=== PATIENT | female | born 1985 | race Caucasian/White ===

== ENCOUNTER → 2024-08-04 14:02 | Outpatient (BNVA) | payer OTHER, SELFPAY | PROVIDERS: PCP Physician Assistant; Visit Provider Physician Assistant ==

== ENCOUNTER → 2024-10-05 14:48 | Outpatient (BNVA) | payer OTHER, SELFPAY | PROVIDERS: PCP Physician Assistant; Visit Provider Student in an Organized Health Care Education/Training Program ==

== ENCOUNTER 2024-10-06 07:38 | Outpatient (REF) | payer OTHER, SELFPAY ==
[2024-10-06 11:47] LABS: Alanine Aminotransferase 22 U/L (0-31); Albumin Level 4.2 g/dL (3.5-5.0); Alkaline Phosphatase 56 U/L (39-117); Aspartate Amino Transferase 22 U/L (5-31); Bilirubin Direct 0.3 mg/dL (0.0-0.5); Cholesterol 175 mg/dL (<200); HDL Cholesterol 63 mg/dL (>40); LDL Cholesterol Calculated 94 mg/dL (<100); Total Protein 6.6 g/dL (6.5-8.0); Triglycerides 90 mg/dL (<150)
[2024-10-06 12:06] LABS: Thyroid Stimulating Hormone 2.02 uIU/mL (0.32-4.0)
[2024-10-12 15:24] LABS: Thyroid Stimulating Immunoglob 339 % baseline (<140)
== END 2024-10-06 07:39 | disposition home or self-care (01) ==
LOC: HO.WFDLDS 07:38
PROVIDERS: Referring Provider Student in an Organized Health Care Education/Training Program; Visit Provider Physician Assistant
DX: F41.1 Generalized anxiety disorder (principal); F41.0 Panic disorder [episodic paroxysmal anxiety]; E05.90 Thyrotoxicosis, unspecified without thyrotoxic crisis or storm
CPT/HCPCS: 36415; 80061; 80076; 84439; 84443; 84445

== ENCOUNTER 2025-02-02 15:33 | Outpatient (AMB) | payer OTHER, SELFPAY ==
--- NOTE | 2025-02-02 15:42 | A.OFFPC_ITS ---
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 Required: No Allergies cefaclor [From Ceclor] Allergy (Unknown, Verified 02/02/25 15:43) Rash Penicillins Allergy (Unknown, Verified 02/02/25 15:43) Rash Medication List - Last Reconciled 02/02/25 by Trini Vann PA-C cholecalciferol (vitamin D3) 50 mcg PO DAILY methimazole 5 mg PO 5XW minoxidil 1.25 mg PO DAILY omega-3 fatty acids-fish oil 300-500 mg (Fish Oil) caps PO propranolol 20 mg PO BID 90 days Tobacco use date assessed: 02/02/25 Dental Screening Dental Screen Date: 02/02/25 Did you have a dental visit in the last 12 months?: Yes Did you have a dental problem in the last 6 months where you did not have access to dental care?: No Was dental information given to patient?: Patient has dentist HPI Physical HPI Details Patient is a 39-year-old female with a significant past medical history of Graves disease, generalized anxiety who presents today for a physical exam Endo: At our last visit she did have her TSH rechecked which was WNL. Her antibodies are still positive. She is now following with [facility] endocrinology and states that she likes this approach. She had her propranolol reduced. Psych: She is feeling that her anxiety is a lot better since stopping the Wellbutrin. She is on propranolol and doing well. 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 [facility] Medical History (Updated 12/07/24 @ 11:05 by Chelly Levin) Graves disease Generalized anxiety disorder with panic attacks Hyperthyroidism Surgical History History of eyelid surgery Family History Father Diabetes Maternal Aunt No problems noted. 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 1. Little interest or pleasure in doing things: not at all 2. Feeling down, depressed, or hopeless: not at all 3. Trouble falling or staying asleep, or sleeping too much: not at all 4. Feeling tired or having little energy: not at all 5. Poor appetite or overeating: not at all 6. Feeling bad about yourself - or that you are a failure or have let yourself or your family down: not at all 7. Trouble concentrating on things, such as reading the newspaper or watching television: not at all 8. Moving or speaking so slowly that other people could have noticed. Or the opposite - being so fidgety or restless that you have been moving around a lot more than usual: not at all 9. Thoughts that you would be better off or of hurting yourself in some way: not at all Total score: 0 Depression Screening Interpretation: Negative Depression Screening Done: Yes 42374 - PHQ-9 Billing: Yes Source: Developed by Drs. Brenton De Leon, Karol Mcgarry, Jm Loya and colleagues, with an educational ibeth from [employer]. Thrive Questionnaire Date Thrive assessed: 02/02/25 I am a: Patient What is your living situation today?: I have a steady place to live Within the past 12 months, did the food you bought not last and you didn't have the money to get more?: Often true Within the past 12 months, did you worry whether your food would run out before you got money to buy more?: Never true Do you have trouble paying for medicines?: No Do you have trouble getting transportation to medical appointments?: No Do you have trouble paying your heating and electricity bill?: No Do you have trouble taking care of your child, family member or friend?: No Do you have trouble with day-to-day activities such as bathing, preparing meals, shopping, managing finances, etc.?: No Are you currently unemployed and looking for a job?: No Are you interested in more education?: No Please select the resources that you would like help with: None Currently or been in a relationship where the following occur: No concerns reported THRIVE Score: 1 AUDIT C Alcohol Use Questionnaire (AUDIT-C) 1. How often do you have a drink containing alcohol?: Never 3. How often do you have six or more drinks on one occasion?: Never Total Score: 0 MAAME-7 AMB Questionnaire MAAME-7 Date MAAME - 7 assessed: 02/02/25 Feeling nervous, anxious, or on edge: 0 = Not at all Not being able to stop or control worryin = Not at all Worrying too much about different things: 0 = Not at all Trouble relaxin = Not at all Being so restless that it is hard to sit still: 0 = Not at all Becoming easily annoyed or irritable: 0 = Not at all Feeling afraid as if something awful might happen: 0 = Not at all Total MAAME-7 score (0-4 normal; 5-9 mild; 10-14 moderate; 15-21 severe): 0 Source: Developed by Drs. Brenton De Leon, Karol Mcgarry, Jm Loya and colleagues, with an educational ibeth from [employer]. MAAME-7 Assessment Billing MAAME-7 Assessment Tool: MAAME-7 Assessment 47493 Physical exam (Primary Care) Vital Signs: Last Vital Signs Pulse 68 02/02/25 15:48 Resp 12 02/02/25 15:48 BP 98/64 02/02/25 15:48 Pulse Ox 98 02/02/25 15:48 Oxygen Delivery Method Room Air 02/02/25 15:48 Tobacco/Smoking Status: Tobacco use Status Tobacco use date assessed 02/02/25 02/02/25 15:49 Patient Tobacco Use Status Never used Tobacco 02/02/25 15:56 e-Cigarette/Vaping Use Never Used 02/02/25 15:56 PHQ-9: PHQ-9 Score PHQ-9: Total score 0 02/02/25 16:07 Depression Screening Interpretation: Negative Thrive Assessment: Date of Thrive Assessment Date Thrive assessed 02/02/25 02/02/25 15:49 Currently or been in a relationship where the following occur: No concerns reported Const Orientation/consciousness: patient oriented x3 HENMT Ears: hearing grossly normal bilaterally and TM's normal bilaterally General nose exam: No nasal polyps present Face and sinus: Yes sinuses nontender Mouth: Normal oral and palatal mucosa present Eyes Pupils: Equal, round and reactive pupils present EOM: EOMs intact bilaterally Neck Neck: Yes full ROM and Yes no lymphadenopathy Thyroid: Thyroid normal Chest Chest palpation & inspection: normal inspection of the chest Resp Auscultation: clear to auscultation bilaterally Cardio Rate: regular rate Rhythm: regular rhythm Heart sounds: S1 normal heart sound present and S2 normal heart sound present Peripheral pulses: Peripheral pulses 2+ throughout GI Other: Soft, nontender Auscultation: normal bowel sounds Rectal Exam - Female: deferred General: Yes no CVA tenderness Back/Spine/Pelvis Other: Nontender Back: no CVA tenderness Skin General skin exam: no rashes or lesions noted Neuro General: patient oriented x3, gait normal, CN's II-XI intact bilaterally and deep tendon reflexes 2+ bilaterally Cranial nerves: Yes Equal, round and reactive pupils present Motor exam (neuro): 5/5 motor strength present throughout Sensory Exam: double simultaneous stimulation for sensation normal Coordination: [id number]-va-[id number] test normal and Romberg test negative Extrem General: Yes normal to inspection and Yes full ROM Psych Affect: normal affect Attitude: cooperative Thought process: Normal thought process present Thought content: Normal thought content present Insight: Good insight present (Psych) Judgement: Good judgement present (Psych) Coding Level of Care Code Est Pt Prev Care 40-64y(03064) Diagnoses Encounter for routine history and physical examination Z00.00 Generalized anxiety disorder with panic attacks F41.1; F41.0 Graves disease E05.00 Additional Codes MAAME-7 Assessment Billing - MAAME-7 Assessment Tool: MAAME-7 Assessment 42338 ([id number]) PHQ-9 - 40961 - PHQ-9 Billing: Yes ([id number]) Assessment & Plan Assessment & Plan (1) Encounter for routine history and physical examination: Code(s): Z00.00 - Encounter for general adult medical examination without abnormal findings Plan: Health maintenance reviewed Labs ordered we will monitor (2) Generalized anxiety disorder with panic attacks: Code(s): F41.1 - Generalized anxiety disorder; F41.0 - Panic disorder [episodic paroxysmal anxiety] Category: Medical Plan: Currently controlled (3) Graves disease: Code(s): E05.00 - Thyrotoxicosis with diffuse goiter without thyrotoxic crisis or storm Category: Medical Plan: Follow with Endocrine as directed Orders: Orders Estrad Free (Tot Ultra + Free) Today E05.00 - Thyrotoxicosis with diffuse goiter without thyrotoxic crisis or storm, F41.0 - Panic disorder [episodic paroxysmal anxiety], F41.1 - Generalized anxiety disorder, Z00.00 - Encounter for general adult medical examination without abnormal findings Testosterone, Free/Total Today E05.00 - Thyrotoxicosis with diffuse goiter without thyrotoxic crisis or storm, F41.0 - Panic disorder [episodic paroxysmal anxiety], F41.1 - Generalized anxiety disorder, Z00.00 - Encounter for general adult medical examination without abnormal findings Vitamin B12 and Folate Today E05.00 - Thyrotoxicosis with diffuse goiter without thyrotoxic crisis or storm, F41.0 - Panic disorder [episodic paroxysmal anxiety], F41.1 - Generalized anxiety disorder, Z00.00 - Encounter for general adult medical examination without abnormal findings Follicle Stimulating Hormone Today E05.00 - Thyrotoxicosis with diffuse goiter without thyrotoxic crisis or storm, F41.0 - Panic disorder [episodic paroxysmal anxiety], F41.1 - Generalized anxiety disorder, Z00.00 - Encounter for general adult medical examination without abnormal findings Complete Blood Count Auto Diff Today E05.00 - Thyrotoxicosis with diffuse goiter without thyrotoxic crisis or storm, F41.0 - Panic disorder [episodic paroxysmal anxiety], F41.1 - Generalized anxiety disorder, Z00.00 - Encounter for general adult medical examination without abnormal findings Comprehensive Met. Panel Today E05.00 - Thyrotoxicosis with diffuse goiter without thyrotoxic crisis or storm, F41.0 - Panic disorder [episodic paroxysmal anxiety], F41.1 - Generalized anxiety disorder, Z00.00 - Encounter for general adult medical examination without abnormal findings UA CC w/rflx Micro + Cult Today E05.00 - Thyrotoxicosis with diffuse goiter without thyrotoxic crisis or storm, F41.0 - Panic disorder [episodic paroxysmal anxiety], F41.1 - Generalized anxiety disorder, Z00.00 - Encounter for general adult medical examination without abnormal findings, Z13.220 - Encounter for screening for lipoid disorders TSH reflex Free T4 Today E05.00 - Thyrotoxicosis with diffuse goiter without thyrotoxic crisis or storm, F41.0 - Panic disorder [episodic paroxysmal anxiety], F41.1 - Generalized anxiety disorder, Z00.00 - Encounter for general adult medical examination without abnormal findings Magnesium Today E05.00 - Thyrotoxicosis with diffuse goiter without thyrotoxic crisis or storm, F41.0 - Panic disorder [episodic paroxysmal anxiety], F41.1 - Generalized anxiety disorder, Z00.00 - Encounter for general adult medical examination without abnormal findings
[2025-02-02 15:48] VITALS: BP 98/64; PULSE 68; RESP 12; O2SAT 98
== END 2025-02-02 16:13 | disposition home or self-care (01) ==
PROVIDERS: PCP Physician Assistant; Visit Provider Physician Assistant
DX: Z00.00 Encounter for general adult medical examination without abnormal findings (principal); F41.1 Generalized anxiety disorder; F41.0 Panic disorder [episodic paroxysmal anxiety]; E05.00 Thyrotoxicosis with diffuse goiter without thyrotoxic crisis or storm

== ENCOUNTER → 2025-02-02 15:33 | Outpatient (BNVA) | payer OTHER, SELFPAY | PROVIDERS: PCP Physician Assistant; Visit Provider Physician Assistant | DX: Z00.00 Encounter for general adult medical examination without abnormal findings (principal); F41.1 Generalized anxiety disorder; F41.0 Panic disorder [episodic paroxysmal anxiety]; E05.00 Thyrotoxicosis with diffuse goiter without thyrotoxic crisis or storm; Z79.899 Other long term (current) drug therapy | CPT/HCPCS: 96127 ==

== ENCOUNTER 2025-02-03 08:14 | Outpatient (REF) | payer OTHER, SELFPAY ==
[2025-02-03 11:25] LABS: MANUAL DIFF FLAG NO
[2025-02-03 11:41] LABS: Basophils Absolute Auto 0.1 X10*3/uL (0.0-0.2); Basophils Percent Auto 1.1 % (0-2); Eosinophils Absolute Auto 0.2 X10*3/uL (0.0-0.4); Eosinophils Percent Auto 4.4 % (0-4); Hematocrit 37.8 % (37.0-47.0); Hemoglobin 12.8 g/dl (12.0-16.0); Imm Gran Abs Auto 0.01 X10*3/uL (0.00-0.03); Imm Gran Pct Auto 0.2 % (0.0-0.4); Lymphocytes Absolute Auto 2.2 X10*3/uL (1.2-4.9); Lymphocytes Percent Auto 48.7 % (20-40); Mean Corpuscular HGB Conc 33.9 g/dl (31.0-35.0); Mean Corpuscular Hemoglobin 29.6 pg (27.0-33.0); Mean Corpuscular Volume 87.3 fL (80.0-98.0); Monocytes Absolute Auto 0.3 X10*3/uL (0.1-1.2); Monocytes Percent Auto 6.1 % (2-11); Neutrophils Absolute Auto 1.8 x10*3/uL (2.0-8.3); Neutrophils Percent Auto 39.5 % (45-73); Platelet Count 225 X10*3/uL (160-400); Red Blood Count 4.33 X10*6/uL (4.20-5.50); Red Cell Distribution Width 13.1 % (11.0-16.0); White Blood Count 4.6 X10*3/uL (4.8-10.8)
[2025-02-03 12:00] LABS: Appearance Urine Clear; Color Urine Yellow; Glucose Urine UA Negative (Negative); Leukocyte Esterase Urine Trace (Negative); Nitrite Urine Negative (Negative); PH 6.5 (5.0-9.0); Specific Gravity - Urine >= 1.030 (1.005-1.025); UMIC TRIGGER UACC YES; Urine Blood Negative (Negative); Urine Ketones Trace mg/dL (Negative); Urine Protein Trace mg/dL (Neg-Trace)
[2025-02-03 12:04] LABS: Alanine Aminotransferase 21 U/L (0-31); Albumin Level 4.4 g/dL (3.5-5.0); Alkaline Phosphatase 49 U/L (39-117); Anion Gap 10 (12-20); Aspartate Amino Transferase 22 U/L (5-31); Blood Urea Nitrogen 10 mg/dL (9-16); Calcium 8.9 mg/dL (8.4-10.2); Carbon Dioxide 24 mmol/L (22-29); Chloride 110 mmol/L (96-108); Estimated Glomerular Filt Rate > 60; Glucose Random 87 mg/dL (60-115); Magnesium 2.1 mg/dL (1.6-2.6); Potassium 3.8 mmol/L (3.3-5.1); Sodium 140 mmol/L (135-145); Total Protein 6.8 g/dL (6.5-8.0)
[2025-02-03 12:04] LABS: Bacteria Urine Trace (None Seen); Hyaline Casts Urine 0-2 /LPF (0-2); RBC Urine 0-2 /HPF (0-2); WBC Urine 0-5 /HPF (0-5)
[2025-02-03 12:22] LABS: TSH reflex Free T4 2.83 uIU/mL (0.32-4.0)
[2025-02-03 12:28] LABS: Folate 5.3 ng/mL (> or = 4.0); Vitamin B12 362 pg/mL (200-900)
[2025-02-05 11:09] LABS: Follicle Stimulating Hormone 7.2 mIU/mL
[2025-02-08 17:48] LABS: Testosterone, Free 3.2 pg/mL (0.1-6.4); Testosterone, Total 29 ng/dL (2-45)
[2025-03-02 17:24] LABS: Estradiol Free 0.56 pg/mL; Estradiol, Ultrasensitive 29 pg/mL
== END 2025-02-03 08:15 | disposition home or self-care (01) ==
LOC: HO.WFDLDS 08:14
PROVIDERS: Visit Provider Physician Assistant
DX: Z00.00 Encounter for general adult medical examination without abnormal findings (principal); F41.0 Panic disorder [episodic paroxysmal anxiety]; F41.1 Generalized anxiety disorder; E05.00 Thyrotoxicosis with diffuse goiter without thyrotoxic crisis or storm
CPT/HCPCS: 36415; 80053; 81001; 81003; 82607; 82670; 82681; 82746; 83001; 83735; 84402; 84403; 84443; 85025

== ENCOUNTER 2025-03-28 07:32 | Outpatient (REF) | payer OTHER, SELFPAY | END 2025-03-28 07:33 | disposition home or self-care (01) | LOC: HO.WFDLDS 07:32 | PROVIDERS: Visit Provider Student in an Organized Health Care Education/Training Program | DX: E05.00 Thyrotoxicosis with diffuse goiter without thyrotoxic crisis or storm (principal) | CPT/HCPCS: 36415; 84443 ==

== ENCOUNTER 2025-03-28 09:55 | Outpatient (REF) | payer OTHER, SELFPAY | END 2025-03-28 09:56 | disposition home or self-care (01) | LOC: HO.LAB 09:55 | PROVIDERS: Visit Provider Student in an Organized Health Care Education/Training Program | DX: Z13.89 Encounter for screening for other disorder (principal) ==

== ENCOUNTER 2025-04-04 07:30 | Outpatient (REF) | payer OTHER, SELFPAY ==
[2025-04-04 12:41] LABS: Free T4 (Free Thyroxine) 0.76 ng/dL (0.71-1.85); Thyroid Stimulating Hormone 5.22 uIU/mL (0.32-4.0)
== END 2025-04-04 07:31 | disposition home or self-care (01) ==
LOC: HO.WFDLDS 07:30
PROVIDERS: Visit Provider Student in an Organized Health Care Education/Training Program
DX: E05.00 Thyrotoxicosis with diffuse goiter without thyrotoxic crisis or storm (principal)
CPT/HCPCS: 36415; 84439; 84443; 84480

== ENCOUNTER 2025-04-05 07:55 | Outpatient (AMB) | payer OTHER, SELFPAY ==
[2025-04-05 07:57] VITALS: BP 98/70; PULSE 62; O2SAT 98; BMI 28.0
--- NOTE | 2025-04-05 07:57 | MHC.OFFVIS ---
Vital Signs 04/05/25 07:57 Height 5 ft 3.23 in Weight 159 lb 6.307 oz BMI 28.0 BP 98/70 Blood Pressure Location Lt brachial Position Sitting Pulse 62 Pulse Source Pulse Oximeter Pulse Oximetry (%) 98 Oxygen Delivery Method Room Air Intake Visit Reasons: Hyperthyroidism Intake Note: Patient present today for Hyperthyroidism office visit. 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 HPI Was previously following with Dr. Gonsales at [facility] Last visit was in 2023 Diagnosed with hyperthyroidism December 2021. Was told she has Graves disease at that time. 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 ? Patient denies any difficulty swallowing, pain on swallowing or voice changes or difficulty breathing. LMP 09/29/24 , sexually active with , had vasectomy Patient denies any history of childhood neck radiation. Denies having ever used lithium, amiodarone or biotin supplements. Patient denies any family history of thyroid cancer or thyroid disease. Never smoker Maternal grandmother breast cancer She tested negative for breast cancer genes and ovarian genes Interval history Labs from 10/06/2024: TSH 2.02, free T4 1.10, TSI antibody still elevated at 339 Labs from 02/03/2025: TSH 2.83 03/28/2025: TSH high at 5.6 Labs repeated 04/04/2025: TSH high at 5.22, free T4 normal at 0.76, total T3 low at 68 Currently on methimazole 5 mg daily Denies loose stools, anxiety, palpitations, tremors , denies tiredness She is still taking the propranolol 10 mg twice daily more so for anxiety but recently anxiety has been well-controlled. Physical exam General: sitting comfortably in no acute distress HEENT: normocephalic/atraumatic, Neck: supple, has a goiter, right side larger than left Cardiac: normal heart sounds Pulm: normal breath sounds B/L, no added breath sounds Abd: not distended, no tenderness Extremities: no edema, no signs of myxedema Laboratory Tests 01/23/24 09:27 TSH 0.75 07/22 TSH 2.35 on [facility] portal Laboratory Tests 10/06/24 02/03/25 03/28/25 07:39 08:17 07:34 TSH 2.02 2.83 5.60 H Free T4 1.10 Thyroid Stim Immunoglob 339 H Total T3 04/04/25 07:32 TSH 5.22 H Free T4 0.76 Thyroid Stim Immunoglob Total T3 68 L [facility] Medical History (Updated 12/07/24 @ 11:05 by Chelly Levin) Graves disease Generalized anxiety disorder with panic attacks Hyperthyroidism Surgical History History of eyelid surgery Family History Father Diabetes Maternal Aunt No problems noted. 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 Labs last done 04/04/2025: TSH high at 5.22, free T4 normal at 0.76, total T3 low at 68 Currently on methimazole 5 mg daily Denies loose stools, anxiety, palpitations, tremors , denies tiredness She is still taking the propranolol 10 mg twice daily more so for anxiety but recently anxiety has been well-controlled. Labs from September had shown that her TSI was still elevated at 339, hence more predictable possible relapse if fever to take her off methimazole. At this time I will reduce the methimazole to 2.5 mg daily and see how her labs due in about 6 weeks. At this point I also told her that are heart rate is on the lower side and she can come off the propranolol slowly. Discussed with patient that about 30% of the patients have remission after 12-18 months of treatment with methimazole. More recent data has shown longer periods of treatment resulting in better remission rates as well. At this time we will plan to continue treatment with methimazole and continue adjusting the dose as needed. In the long run if she does not have remission, we also briefly discussed definitive therapy options of radioactive iodine ablation and total thyroidectomy and the need for requiring long-term levothyroxine therapy after those procedures. Plan: -reduce methimazole to 2.5 mg daily -taper of propranolol to 10 mg daily for a week , then 10 mg every other day for a week, then maybe 10 mg 3 times a week for a week , and then you can stop -ordered TSH, free T4, total T3 to be done in 6 weeks, we will reach out with the results -follow up in 3 months The following were discussed as potential side effects of methimazole: - Serious skin rashes - nausea, vomiting, or severe hepatic injury - Agranulocytosis: a rare side effect of methimazole involves a severe decrease in the production of white blood cells. This condition is extremely serious, but affects only one out of every 200 to 500 people who take an antithyroid drug. Agranulocytosis more commonly occurs within the first three months of starting treatment with an antithyroid drug, but can occur at any time. If patient develops a fever (temperature above 100.5F), or other signs or symptoms of infection, she should stop taking the tapazole and immediately have a complete blood count (CBC) done. Serious and potentially life threatening infections, or even , can occur before agranulocytosis resolves. However, once the antithyroid drug is stopped, agranulocytosis usually resolves within a week. - Arthralgias, myalgias - Renal: Nephritis - Fever Patient will stop medication and call our office if these occur. (2) Graves disease: Code(s): E05.00 - Thyrotoxicosis with diffuse goiter without thyrotoxic crisis or storm Category: Medical Plan: See above Plan I spent 30 minutes in reviewing the record, seeing the patient and documenting in the medical record. Orders: Orders Thyroid Stimulating Hormone 6 Weeks E05.00 - Thyrotoxicosis with diffuse goiter without thyrotoxic crisis or storm, E05.90 - Thyrotoxicosis, unspecified without thyrotoxic crisis or storm Free T4 (Free Thyroxine) 6 Weeks E05.00 - Thyrotoxicosis with diffuse goiter without thyrotoxic crisis or storm, E05.90 - Thyrotoxicosis, unspecified without thyrotoxic crisis or storm Triiodothyronine T3 Total 6 Weeks E05.00 - Thyrotoxicosis with diffuse goiter without thyrotoxic crisis or storm, E05.90 - Thyrotoxicosis, unspecified without thyrotoxic crisis or storm Medications: Changed From methimazole 5 mg PO 5XW To methimazole 2.5 mg (1/2 x 5 mg) PO DAILY 30 tabs 2RF Patient Instructions: Reduce methimazole to 2.5 mg (half a tablet daily) Taper off propanolol slowly by doing 10 mg daily for a week , then 10 mg every other day for a week, then maybe 10 mg 3 times a week for a week , and then you can stop Do blood work in 6 weeks , orders are in The following were discussed as potential side effects of methimazole: - Serious skin rashes - nausea, vomiting, or severe hepatic injury - Agranulocytosis: a rare side effect of methimazole involves a severe decrease in the production of white blood cells. This condition is extremely serious, but affects only one out of every 200 to 500 people who take an antithyroid drug. Agranulocytosis more commonly occurs within the first three months of starting treatment with an antithyroid drug, but can occur at any time. If patient develops a fever (temperature above 100.5F), or other signs or symptoms of infection, she should stop taking the tapazole and immediately have a complete blood count (CBC) done. Serious and potentially life threatening infections, or even , can occur before agranulocytosis resolves. However, once the antithyroid drug is stopped, agranulocytosis usually resolves within a week. - Arthralgias, myalgias - Renal: Nephritis - Fever Patient will stop medication and call our office if these occur. Coding Level of Care Code Est Pt Level 4 (59933) Diagnoses Hyperthyroidism E05.90 Graves disease E05.00 Time Spent (min) 30
== END 2025-04-05 08:15 | disposition home or self-care (01) ==
LOC: HO.ENCR 07:56
PROVIDERS: PCP Physician Assistant; Visit Provider Student in an Organized Health Care Education/Training Program
DX: E05.90 Thyrotoxicosis, unspecified without thyrotoxic crisis or storm (principal); E05.00 Thyrotoxicosis with diffuse goiter without thyrotoxic crisis or storm
CPT/HCPCS: 99214

== ENCOUNTER 2025-05-17 07:29 | Outpatient (REF) | payer OTHER, SELFPAY ==
--- OUTSIDE RECORDS SUMMARY | 2025-05-17 07:31 | XMS_ITS ---
Author Name [facility] Organization Unknown Care Team Organization Name Specialty Phone Email Start Date End Da te [facility] Maria Eugenia Morley MD Primary Care 08/06/2022 05/17/2024
[2025-05-17 11:59] LABS: Free T4 (Free Thyroxine) 0.91 ng/dL (0.71-1.85); Thyroid Stimulating Hormone 4.45 uIU/mL (0.32-4.0)
== END 2025-05-17 07:30 | disposition home or self-care (01) ==
LOC: HO.WFDLDS 07:29
PROVIDERS: Visit Provider Student in an Organized Health Care Education/Training Program
DX: E05.00 Thyrotoxicosis with diffuse goiter without thyrotoxic crisis or storm (principal)
CPT/HCPCS: 36415; 84439; 84443; 84480

== ENCOUNTER 2025-06-29 08:18 | Outpatient (REF) | payer OTHER, SELFPAY ==
[2025-06-29 12:07] LABS: Free T4 (Free Thyroxine) 0.99 ng/dL (0.71-1.85); Thyroid Stimulating Hormone 1.96 uIU/mL (0.32-4.0)
== END 2025-06-29 08:19 | disposition home or self-care (01) ==
LOC: HO.WFDLDS 08:18
PROVIDERS: Visit Provider Student in an Organized Health Care Education/Training Program
DX: E05.00 Thyrotoxicosis with diffuse goiter without thyrotoxic crisis or storm (principal)
CPT/HCPCS: 36415; 84439; 84443; 84480

== ENCOUNTER 2025-07-07 07:59 | Outpatient (AMB) | payer OTHER, SELFPAY ==
[2025-07-07 08:01] VITALS: BP 108/74; PULSE 73; O2SAT 98; BMI 28.1
--- NOTE | 2025-07-07 08:01 | A.OFFVIS_ITS ---
Vital Signs 3 07/07/25 08:01 Height 5 ft 3.23 in Weight 159 lb 9.835 oz BMI 28.1 BP 108/74 Blood Pressure Location Lt brachial Position Sitting Pulse 73 Pulse Source Pulse Oximeter Pulse Oximetry (%) 98 Oxygen Delivery Method Room Air Intake Visit Reasons: Hyperthyroidism Intake Note: Patient present today for Hyperthyroidism office visit. 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 HPI Was previously following with Dr. Gonsales at [facility] Last visit with [facility] was in 2023 Diagnosed with hyperthyroidism December 2021. Was told she has Graves disease at that time. 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 ? Patient denies any difficulty swallowing, pain on swallowing or voice changes or difficulty breathing. LMP 09/29/24 , sexually active with , had vasectomy Patient denies any history of childhood neck radiation. Denies having ever used lithium, amiodarone or biotin supplements. Patient denies any family history of thyroid cancer or thyroid disease. Never smoker Maternal grandmother breast cancer She tested negative for breast cancer genes and ovarian genes Labs from 10/06/2024: TSH 2.02, free T4 1.10, TSI antibody still elevated at 339 Labs from 02/03/2025: TSH 2.83 03/28/2025: TSH high at 5.6 Labs repeated 04/04/2025: TSH high at 5.22, free T4 normal at 0.76, total T3 low at 68 was on methimazole 5 mg daily Interval history 04/05/2025: Methimazole reduced to 2.5 mg daily, propranolol tapered off 05/17/2025: TSH 4.45, free T4 0.91, total T3 90 05/18/2025: Methimazole reduced to 2.5 mg every other day 06/29/2025: TSH 1.96, free T4 0.99, total T3 96 Denies loose stools, anxiety, palpitations, tremors , denies tiredness Next appt with Maya in 2025 for annual follow up Physical exam General: sitting comfortably in no acute distress HEENT: normocephalic/atraumatic, Neck: supple, has a goiter, right side larger than left Cardiac: normal heart sounds Pulm: normal breath sounds B/L, no added breath sounds Abd: not distended, no tenderness Extremities: no edema, no signs of myxedema Laboratory Tests 01/23/24 09:27 TSH 0.75 07/22 TSH 2.35 on [facility] portal Laboratory Tests 10/06/24 02/03/25 03/28/25 07:39 08:17 07:34 TSH 2.02 2.83 5.60 H Free T4 1.10 Thyroid Stim Immunoglob 339 H Total T3 04/04/25 07:32 TSH 5.22 H Free T4 0.76 Thyroid Stim Immunoglob Total T3 68 L Laboratory Tests 05/17/25 06/29/25 07:31 08:20 TSH 4.45 H 1.96 Free T4 0.91 0.99 Total T3 90 96 [facility] Medical History (Updated 12/07/24 @ 11:05 by Chelly Levin) Graves disease Generalized anxiety disorder with panic attacks Hyperthyroidism Surgical History History of eyelid surgery Family History Father Diabetes Maternal Aunt No problems noted. 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 Labs from September 2024 had shown that her TSI was still elevated at 339, hence more predictable possible relapse if we were to take her off methimazole. Discussed with patient that about 30% of the patients have remission after 12-18 months of treatment with methimazole. More recent data has shown longer periods of treatment resulting in better remission rates as well. At this time we will plan to continue treatment with methimazole and continue adjusting the dose as needed. In the long run if she does not have remission, we also briefly discussed definitive therapy options of radioactive iodine ablation and total thyroidectomy and the need for requiring long-term levothyroxine therapy after those procedures. 04/05/2025: Methimazole reduced to 2.5 mg daily, propranolol tapered off 05/17/2025: TSH 4.45, free T4 0.91, total T3 90 05/18/2025: Methimazole reduced to 2.5 mg every other day 06/29/2025: TSH 1.96, free T4 0.99, total T3 96 She is currently feeling well, at this time we will continue her on the current dose. We will recheck her antibodies prior to her next follow up to see if we should consider taking her off the methimazole. Plan: -continue methimazole 2.5 mg every other day -ordered TSH, free T4, total T3 to be done in 3 months, someone will reach out with the results if they are abnormal. -follow up in 5 months, we will need another set of blood work with thyroid panel including antibody levels prior to this appointment (2) Graves disease: Code(s): E05.00 - Thyrotoxicosis with diffuse goiter without thyrotoxic crisis or storm Category: Medical Plan: See above Plan See above Orders: Orders 2 Triiodothyronine T3 Total 3 Months E05. - Thyrotoxicosis with diffuse goiter without thyrotoxic crisis or storm, E05. - Thyrotoxicosis, unspecified without thyrotoxic crisis or storm Thyroid Stimulating Hormone 3 Months E05.00 - Thyrotoxicosis with diffuse goiter without thyrotoxic crisis or storm, E05. - Thyrotoxicosis, unspecified without thyrotoxic crisis or storm Free T4 (Free Thyroxine) 3 Months E05. - Thyrotoxicosis with diffuse goiter without thyrotoxic crisis or storm, E05. - Thyrotoxicosis, unspecified without thyrotoxic crisis or storm Medications: Refilled 2 methimazole 2.5 mg orally; every other day 30 tabs 4RF Patient Instructions: Continue methimazole 2.5 mg every other day Do blood work in 3 months, if they are abnormal somebody we will reach out to you with the results, if they are abnormal and you have not heard from anyone for about a week, please call the office during office hours to discuss your results Also call the office about a week prior to your next visit with me in 5 months to get blood work orders for blood work to be done prior to that appointment Coding Level of Care Code Est Pt Level 3 (25102) Diagnoses Hyperthyroidism E0 Graves disease E0
== END 2025-07-07 08:17 | disposition home or self-care (01) ==
LOC: HO.ENCR 08:00
PROVIDERS: PCP Physician Assistant; Visit Provider Student in an Organized Health Care Education/Training Program
DX: E05.90 Thyrotoxicosis, unspecified without thyrotoxic crisis or storm (principal); E05.00 Thyrotoxicosis with diffuse goiter without thyrotoxic crisis or storm
CPT/HCPCS: 99213

== ENCOUNTER 2025-08-10 12:48 | Outpatient (AMB) | payer OTHER, SELFPAY ==
--- NOTE | 2025-08-10 12:36 | A.OFFPC_ITS ---
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 She states that last week on she started to feel unwell with some congestion, rhinorrhea and a cough. She says that the cough is deep and usually dry. She says it feels like there is phlegm in her chest. She has been having intermittent low-grade fevers. Nothing above 100. She has not used anything for her symptoms. Does not feel like she is getting better. Currently does not have any sinus pain, ear pain or sore throat. She does still have this cough and she states that it sometimes feels like she maybe has a little bit of asthma with it. She denies any shortness a breath, dizziness or chest pain. She wonders if she could have pneumonia or walking pneumonia. She has not tested for COVID or the flu. Her daughter is sick with similar symptoms and was told that it is likely viral. [facility] Medical History (Updated 08/10/25 @ 12:44 by Trini Vann PA-C) Graves disease Generalized anxiety disorder with panic attacks Hyperthyroidism Surgical History History of eyelid surgery Family History Father Diabetes Maternal Aunt No problems noted. 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 How often do you have six or more drinks on one occasion?: Never Total Score: 0 MAAME-7 AMB Questionnaire MAAME-7 Date MAAME - 7 assessed: 02/02/25 Source: Developed by Drs. Brenton De Leon, Karol Mcgarry, Jm Loya and colleagues, with an educational ibeth from [employer]. Physical exam (Primary Care) Tobacco/Smoking Status: Tobacco use Status Tobacco use date assessed 02/02/25 08/10/25 12:36 Patient Tobacco Use Status Never used Tobacco 08/10/25 12:36 e-Cigarette/Vaping Use Never Used 08/10/25 12:36 Thrive Assessment: Date of Thrive Assessment Date Thrive assessed 02/02/25 08/10/25 12:36 Telehealth Telehealth Telehealth Platform: Telephone Location of provider rendering services: practice address Location of patient: address on file Patient Identification confirmed using: Name, : Yes Telehealth method: voice only Patient verbally consented to treatment: Yes Patient verbally consented to billing insurance company: Yes Patient informed of any privacy concerns related to visit: Yes Minutes spent on Phone/Video with Pt.: 15 Coding Level of Care Code Tele Est Pt Level 2 (48071) Complex EM visit Add On G2211 Diagnoses Viral URI with cough J06.9 Assessment & Plan Assessment & Plan (1) Viral URI with cough: Code(s): J06.9 - Acute upper respiratory infection, unspecified Category: Medical Plan: Advised patient to hold off on antibiotics and discuss that this is likely viral in etiology. Chest x-ray ordered. We will follow up pending test results. If indicated we will start patient on doxycycline. Discussed risks and benefits and adverse effects of this medication at length. Advised to try Mucinex and albuterol as needed. Work note provided Supportive measures reviewed She will follow up if anything worsens or changes. Orders: Orders XR chest 2V Today J18.9 - Pneumonia, unspecified organism Medications: New albuterol sulfate 90 mcg/actuation (Ventolin HFA) 2 puffs inhalation Q4-6H PRN 8.5 grams 0RF shortness of breath or wheezing doxycycline hyclate 100 mg PO BID 20 tabs 0RF
== END 2025-08-10 14:56 | disposition home or self-care (01) ==
LOC: HO.HMCFM 12:48
PROVIDERS: PCP Physician Assistant; Visit Provider Physician Assistant
DX: J06.9 Acute upper respiratory infection, unspecified (principal)